=== PATIENT | male | born 1950 | race Hispanic/Latino ===

== ENCOUNTER 2021-09-17 09:34 | Emergency (ER) | payer OTHER ==
[2021-09-17] MEDS ORDERED: ONDANSETRON 4 MG/2 ML INJ ONE (09:43)
[2021-09-17] MEDS ORDERED: SODIUM CHLORIDE 0.9% 500 ML 500 ML IV ONE (09:50)
[2021-09-17] MEDS ORDERED: ONDANSETRON 4 MG/2 ML INJ IV ONE (09:51)
--- NOTE | 2021-09-17 09:55 | Emergency Department Report ---
ED Syncope HPI - General Chief Complaint: Syncope Stated Complaint: SYNCOPE/WEAK Time Seen by Provider: 09/17/21 09:50 Source: patient, family, EMS - History of Present Illness Initial Comments: Patient is 70 years old male with history of liver transplant in 2013, chronic kidney disease. Patient brought to the emergency room via EMS from home for evaluation of single episode of syncope that happened this morning. Patient stated that he woke up normal but before he eat breakfast he went straight to the backyard and start working on his yard. He stated that he was doing a lot of bending and straightening up approximately more than 30 times when all of a sudden he found himself passed out and his is working him up. Patient stated that he did not have any symptoms prior to this. Patient is having some nausea and vomiting. He denies any fever or chills. No chest pain or shortness of breath he also denied any headache or neck pain. Patient stated that he is back to normal apart for the vomiting. Timing/Prior Episodes: single episode today Precipitating Factors: Positive: none Context: sitting Loss of Consciousness: brief (seconds) Current Symptoms: back to normal - Related Data Allergies/Adverse Reactions: Allergies Penicillins Allergy (Mild, Verified 09/17/21 10:01) Rash ibuprofen Allergy (Verified 09/17/21 10:01) Shortness of Breath ED Review of Systems ROS: Stated complaint: SYNCOPE/WEAK Other details as noted in HPI Comment: All other systems reviewed and negative Constitutional: denies: chills, fever Respiratory: denies: cough, shortness of breath, SOB with exertion Cardiovascular: denies: chest pain, palpitations, dyspnea on exertion Gastrointestinal: nausea, vomiting. denies: abdominal pain, diarrhea, constipation, hematemesis, melena, hematochezia Musculoskeletal: denies: back pain Neurological: denies: headache, weakness, numbness, paresthesias, confusion, abnormal gait ED Physical Exam - General Limitations: No Limitations General appearance: alert, in no apparent distress - Head Head exam: Present: atraumatic, normocephalic, normal inspection - Eye Eye exam: Present: normal appearance - ENT ENT exam: Present: normal exam, normal orophraynx, mucous membranes moist - Neck Neck exam: Present: normal inspection, full ROM. Absent: tenderness, meningismus - Respiratory Respiratory exam: Present: normal lung sounds bilaterally - Cardiovascular Cardiovascular Exam: Present: regular rate, normal rhythm, normal heart sounds - GI/Abdominal GI/Abdominal exam: Present: soft, normal bowel sounds. Absent: distended, tenderness, guarding, rebound, rigid, organomegaly, mass, bruit, pulsatile mass, hernia - Extremities Exam Extremities exam: Present: normal inspection, full ROM, normal capillary refill. Absent: tenderness, pedal edema, calf tenderness - Back Exam Back exam: Present: normal inspection, full ROM. Absent: CVA tenderness (R), CVA tenderness (L) - Neurological Exam Neurological exam: Present: alert, oriented X3, CN II-XII intact, normal gait, reflexes normal. Absent: motor sensory deficit - Psychiatric Psychiatric exam: Present: normal mood - Skin Skin exam: Present: warm, intact, normal color ED Course Vital Signs 09/17/21 09/17/21 09/17/21 09:39 09:54 11:55 Temperature 97.7 F Pulse Rate 68 60 56 L Respiratory 18 14 13 Rate Blood Pressure 107/66 Blood Pressure 135/74 [Right] O2 Sat by Pulse 95 97 99 Oximetry 09/17/21 09/17/21 09/17/21 12:00 12:16 12:30 Temperature Pulse Rate 57 L 55 L 58 L Respiratory 16 17 13 Rate Blood Pressure 109/68 Blood Pressure [Right] O2 Sat by Pulse 96 98 97 Oximetry 09/17/21 09/17/21 09/17/21 12:46 13:00 13:16 Temperature Pulse Rate 58 L 57 L 59 L Respiratory 15 19 14 Rate Blood Pressure 109/68 111/66 111/66 Blood Pressure [Right] O2 Sat by Pulse 97 95 97 Oximetry 09/17/21 09/17/21 13:30 13:46 Temperature Pulse Rate 60 60 Respiratory 23 20 Rate Blood Pressure 112/66 112/66 Blood Pressure [Right] O2 Sat by Pulse 95 96 Oximetry ED Medical Decision Making - Lab Data Result diagrams: 09/17/21 10:11 09/17/21 10:11 - EKG Data -: EKG Interpreted by [place] EKG shows normal: sinus rhythm Rate: normal - EKG Data Interpretation: no acute changes - Radiology Data Radiology results: report reviewed - Medical Decision Making Patient is 70 years old male with history of liver transplant in 2012, chronic kidney disease. Patient brought to the emergency room via EMS from home for evaluation of single episode of syncope that happened this morning. Patient stated that he woke up normal but before he eat breakfast he went straight to the backyard and start working on his yard. He stated that he was doing a lot of bending and straightening up approximately more than 30 times when all of a sudden he found himself passed out and his is working him up. Patient stated that he did not have any symptoms prior to this. Patient is having some nausea and vomiting. He denies any fever or chills. No chest pain or shortness of breath he also denied any headache or neck pain. Patient stated that he is back to normal apart for the vomiting. Patient remained stable in the ER with a stable vital sign. Labs reviewed and is unremarkable. CT brain is negative for acute finding. Chest x-ray is unremarkable. Patient advised to follow-up with his primary care physician in the next 2 to 3 days and to return to the ER if he develop any new symptoms. Critical care attestation.: If time is entered above; I have spent that time in minutes in the direct care o f this critically ill patient, excluding procedure time. ED Disposition Clinical Impression: Syncope Disposition: 01 HOME / SELF CARE / HOMELESS Is pt being admited?: No Condition: Stable Instructions: Syncope (ED), Syncope, [id number] Referrals: PRIMARY CARE, [Referring] - 3-5 Days Forms: Work/School Release Form(ED)
--- NOTE | 2021-09-17 10:25 | XRay Report ---
CHEST 1 VIEW INDICATION / CLINICAL INFORMATION: Syncope. COMPARISON: None available. FINDINGS: SUPPORT DEVICES: None. HEART / MEDIASTINUM: No significant abnormality. LUNGS / PLEURA: No significant pulmonary or pleural abnormality. No pneumothorax. ADDITIONAL FINDINGS: No significant additional findings. IMPRESSION: 1. No acute findings. Signer Name: Raúl Mckeon MD Signed: 09/17/2021 10:20 AM Workstation Name: [id number]
--- NOTE | 2021-09-17 10:55 | Cat Scan Report ---
. CT HEAD WITHOUT CONTRAST INDICATION / CLINICAL INFORMATION: Syncope. TECHNIQUE: All CT scans at this location are performed using CT dose reduction for ALARA by means of automated e xposure control. COMPARISON: None available. FINDINGS: HEMORRHAGE: None. EXTRA-AXIAL SPACES: Normal in size and morphology for the patient's age. VENTRICULAR SYSTEM: Normal in size and morphology for the patient's age. CEREBRAL PARENCHYMA: No significant abnormality. No acute territorial infarct. MIDLINE SHIFT OR HERNIATION: None. CEREBELLUM / BRAINSTEM: No significant abnormality. ORBITS: Normal as visualized. SOFT TISSUES of HEAD: No significant abnormality. CALVARIUM: No significant abnormality. PARANASAL SINUSES / MASTOID AIR CELLS: Normal as visualized. ADDITIONAL FINDINGS: None. IMPRESSION: 1. No acute intracranial abnormality. Were Signer Name: Raúl Mckeon MD Signed: 09/17/2021 10:50 AM Workstation Name: [id number]
[2021-09-17 11:13] LABS: Basophils % (Auto) 0.4 % (0.0-1.8); Eosinophils # (Auto) 0.1 K/mm3 (0.0-0.4); Hematocrit 41.7 % (35.5-45.6); Hemoglobin 14.1 gm/dl (11.8-15.2); Lymphocytes % (Auto) 16.4 % (13.4-35.0); Mean Corpuscular HGB Conc 34 % (32-34); Mean Corpuscular Volume 91 fl (84-94); Monocytes # (Auto) 0.4 K/mm3 (0.0-0.8); Monocytes % (Auto) 5.8 % (0.0-7.3); Platelet Count 213 K/mm3 (140-440); Red Blood Count 4.57 M/mm3 (3.65-5.03); Red Cell Distribution Width 14.2 % (13.2-15.2)
[2021-09-17 11:59] LABS: INR 0.87 (0.87-1.13)
[2021-09-17 12:42] LABS: BUN/Creatinine Ratio 12; Blood Urea Nitrogen 29 mg/dL (9-20); Calcium 9.2 mg/dL (8.4-10.2); Hemolysis Index 8
[2021-09-17 12:46] LABS: Alanine Aminotransferase 50 units/L (7-56); Albumin 4.6 g/dL (3.9-5)
[2021-09-17 12:48] LABS: Bilirubin,Direct < 0.2 mg/dL (0-0.2)
[2021-09-17 14:36] VITALS: BP 119/68
--- NOTE | 2021-09-19 18:47 | Electrocardiograph Report ---
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
== END 2021-09-17 15:10 | disposition home or self-care (01) ==
LOC: ED 09:34
DX: R55 Syncope and collapse (principal); N18.9 Chronic kidney disease, unspecified; Z88.0 Allergy status to penicillin; Z88.6 Allergy status to analgesic agent
CPT/HCPCS: 36415; 70450; 71045; 80048; 80076; 84484; 85025; 85610; 93005; 96374; 99285; J2405; J7040